=== PATIENT | male | born 1990 | race Caucasian/White ===

== ENCOUNTER 2024-02-15 19:57 | Emergency (ER) | payer SELFPAY ==
[2024-02-15 20:06] VITALS: BP 121/78; PULSE 70; RESP 18; TEMP 98.7; BMI 30.4
[2024-02-15] MEDS ORDERED: DIPHTH,PERTUSS(ACELL),TET 0.5 ML DISP.SYRIN IM ONE (20:15)
[2024-02-15] MEDS: DIPHTH,PERTUSS(ACELL),TET 0.5 ML DISP.SYRIN IM ONE (20:18)
== END 2024-02-15 20:19 | disposition home or self-care (01) ==
LOC: JERFT 19:57
PROC: 3E0234Z Introduction of Serum, Toxoid and Vaccine into Muscle, Percutaneous Approach (ICD-10-PCS; principal; 2024-02-15)
DX: S61.411A Laceration without foreign body of right hand, initial encounter (principal); W26.8XXA Contact with other sharp object(s), not elsewhere classified, initial encounter; Z23 Encounter for immunization
CPT/HCPCS: 90715; 99282-25

== ENCOUNTER 2025-02-14 22:19 | Emergency (ER) | payer SELFPAY ==
[2025-02-14 22:28] VITALS: BP 135/70; PULSE 85; RESP 18; TEMP 98.4; BMI 32.9
[2025-02-14 23:11] LABS: ABSOLUTE IMMATURE GRANULOCYTES 0.03 x10^3/uL (0.0-0.031); BASOPHILS # 0.05 x10^3/uL (0.01-0.08); EOSINOPHIL % 3.9 % (0.8-7.0); EOSINOPHILS # 0.32 x10^3/uL (0.04-0.54); HEMATOCRIT 45.5 % (40.1-51.0); HEMOGLOBIN 15.3 g/dL (13.7-17.5); MCHC 33.6 g/dl (32.3-36.5); MEAN PLT VOLUME 10.1 fl (9.4-12.4); MONOCYTE # 0.75 x10^3/uL (0.30-0.82); PLATELET COUNT 250 x10^3/uL (163-337); RDW 12.7 % (12.0-15.6)
[2025-02-14 23:31] LABS: POTASSIUM 4.1 mmol/L (3.5-5.1)
[2025-02-14 23:33] LABS: CALCIUM 9.4 mg/dL (8.5-10.1)
[2025-02-14 23:34] LABS: ALBUMIN 4.2 g/dl (3.4-5.0); BLOOD UREA NITROGEN 19.8 mg/dL (7-18)
[2025-02-14 23:37] LABS: CREATININE 1.2 mg/dL (0.55-1.3)
[2025-02-14 23:39] LABS: BILIRUBIN,TOTAL 0.7 mg/dL (0.2-1); TOT PROT 7.6 g/dl (6.4-8.2)
[2025-02-14] MEDS ORDERED: LORazepam 1 MG TABLET ONE (23:57)
[2025-02-15] MEDS: LORazepam 2 MG TABLET PO ONE (00:07)
[2025-02-15 00:35] LABS: HCV DIAGNOSTIC IN-HOUSE W/RFLX NON-REACTIVE (NONREACTIVE); HIV INTERPRETATION NEGATIVE (NEGATIVE)
== END 2025-02-15 00:07 | disposition home or self-care (01) ==
LOC: JER 22:19
DX: R07.89 Other chest pain (principal)
CPT/HCPCS: 36415; 71046-TC-FY; 80053; 84484; 85025; 86803; 87389; 93005; 93010; 99285-25